=== PATIENT | male | born 1985 | race Two or more races ===

== ENCOUNTER 2022-04-22 23:25 | Emergency (ER) | payer OTHER ==
[~2022-04-22] VITALS: Ht 170.2 cm; Wt 72.6 kg
[2022-04-23] MEDS ORDERED: ONDANSETRON ODT4 MG PO (05:45)
[2022-04-23] MEDS ORDERED: PEPCID40 MG PO (05:45)
[2022-04-23] MEDS ORDERED: LEVSIN/SL0.125 MG SL (05:45)
== END 2022-04-23 06:04 ==
LOC: ER 23:25
DX: K80.20 Calculus of gallbladder without cholecystitis without obstruction (principal)